=== PATIENT | male | born 1940 | race Caucasian/White ===

== ENCOUNTER → 2023-07-04 11:21 | Outpatient (REF) | payer MEDICARE, SELFPAY ==
[2023-07-04 12:24] LABS: % Basophils 1.1 % (0-2); % Eosinophils 3.1 % (0-6); % Immature Granulocytes 1.6 % (0-0.5); % Lymphocytes 19.2 % (20.5-51.1); % Monocytes 10.7 % (1.7-9.3); % Neutrophils 64.3 % (42.2-75.2); Absolute Basophils 0.1 10^3/uL (0-0.2); Absolute Eosinophils 0.2 10^3/uL (0-0.7); Absolute Immature Granulocytes 0.1 10^3/uL (0-0.05); Absolute Lymphocytes 1.2 10^3/uL (1.2-3.4); Absolute Monocytes 0.7 10^3/uL (0.1-0.6); Hematocrit 44.3 % (39.0-52.0); Hemoglobin 15.4 g/dL (13.0-18.0); Mean Corp Hgb Conc. 34.8 g/dL (33.0-37.0); Mean Corpuscular Hgb 31.6 pg (27.0-31.0); Mean Platelet Volume 11.2 fL (7.4-10.4); Nucleated Red Blood Cells % 0 % (-); Platelet Count 207 10^3/uL (130-400); Red Blood Cell Count 4.87 10^6/uL (4.70-6.10); Red Cell Dist. Width 13.7 % (11.5-14.5); White Blood Cell Count 6.2 10^3/uL (4.8-10.8)
[2023-07-04 12:57] LABS: ALT (SGPT) 31 U/L (0-50); AST (SGOT) 40 U/L (17-59); Albumin 4.3 g/dl (3.5-5.0); Alkaline Phosphatase 80 U/L (38-126); Blood Urea Nitrogen 25 mg/dl (9-20); Calcium 10.3 mg/dl (8.4-10.2); Carbon Dioxide 28 mmol/L (22-30); Chloride 101 mmol/L (98-107); Glucose 101 mg/dl (70-99); HDL Cholesterol 86 mg/dl; LDL Cholesterol, Calculated 52 mg/dl; Potassium 5.2 mmol/L (3.5-5.1); Sodium 139 mmol/L (135-145); Total Bilirubin 0.8 mg/dl (0.2-1.3); Total Cholesterol 152 mg/dl (50-199); Total Protein 6.9 g/dl (6.3-8.2); Triglyceride 71 mg/dl (10-149); Very Low Density Lipoprotein 14 mg/dl (0-30); eGFR > 60.00
[2023-07-04 13:25] LABS: TSH 0.78 uIU/ml (0.47-4.68)
[2023-07-06 05:41] LABS: CCP Antibody IgG/IgA 24 Units (0-19)
== END ==
LOC: REG 11:21
PROVIDERS: ATTENDING PHYSICIAN Family Medicine
DX: E78.5 Hyperlipidemia, unspecified (principal); E03.9 Hypothyroidism, unspecified; R76.8 Other specified abnormal immunological findings in serum
CPT/HCPCS: 36415; 80053; 80061; 84443; 85025; 86140; 86200

== ENCOUNTER → 2023-09-16 10:47 | Outpatient (REF) | payer MEDICARE, SELFPAY ==
[2023-09-16 12:45] LABS: ALT (SGPT) 29 U/L (0-50); AST (SGOT) 36 U/L (17-59); Albumin 4.5 g/dl (3.5-5.0); Alkaline Phosphatase 78 U/L (38-126); Blood Urea Nitrogen 20 mg/dl (9-20); Calcium 10.2 mg/dl (8.4-10.2); Carbon Dioxide 28 mmol/L (22-30); Chloride 102 mmol/L (98-107); Glucose 100 mg/dl (70-99); Potassium 4.6 mmol/L (3.5-5.1); Sodium 139 mmol/L (135-145); Total Bilirubin 0.7 mg/dl (0.2-1.3); Total Protein 6.9 g/dl (6.3-8.2); eGFR > 60.00
[2023-09-16 12:51] LABS: Glycohemoglobin (HgbA1c) 5.5 % (4.0-5.6)
== END ==
LOC: REG 10:47
PROVIDERS: ATTENDING PHYSICIAN Internal Medicine Interventional Cardiology; FAMILY PHYSICIAN Family Medicine
DX: I10 Essential (primary) hypertension (principal); E78.2 Mixed hyperlipidemia; E78.5 Hyperlipidemia, unspecified
CPT/HCPCS: 36415; 80053; 83036

== ENCOUNTER → 2023-09-19 08:09 | Outpatient (REF) | payer MEDICARE, SELFPAY | LOC: DHCBC/DCA 08:09 | PROVIDERS: ATTENDING PHYSICIAN Internal Medicine Interventional Cardiology; FAMILY PHYSICIAN Family Medicine | DX: I10 Essential (primary) hypertension (principal); E78.2 Mixed hyperlipidemia; R06.09 Other forms of dyspnea | CPT/HCPCS: 78452; 93017; A9500; J2785 ==

== ENCOUNTER → 2023-09-25 16:09 | Outpatient (REF) | payer MEDICARE, SELFPAY | LOC: RCS 16:09 | PROVIDERS: ATTENDING PHYSICIAN Internal Medicine Interventional Cardiology; FAMILY PHYSICIAN Family Medicine | DX: I10 Essential (primary) hypertension (principal); E78.2 Mixed hyperlipidemia | CPT/HCPCS: 93306 ==

== ENCOUNTER → 2023-12-06 11:21 | Outpatient (REF) | payer MEDICARE, SELFPAY ==
[2023-12-06 13:16] LABS: % Basophils 0.7 % (0-2); % Eosinophils 3.8 % (0-6); % Immature Granulocytes 0.8 % (0-0.5); % Neutrophils 66.7 % (42.2-75.2); Absolute Basophils 0.1 10^3/uL (0-0.2); Absolute Eosinophils 0.3 10^3/uL (0-0.7); Absolute Immature Granulocytes 0.1 10^3/uL (0-0.05); Absolute Lymphocytes 1.2 10^3/uL (1.2-3.4); Absolute Monocytes 0.8 10^3/uL (0.1-0.6); Absolute Neutrophils 4.7 10^3/uL (1.4-6.5); Hematocrit 41.7 % (39.0-52.0); Hemoglobin 14.3 g/dL (13.0-18.0); Mean Corp Hgb Conc. 34.3 g/dL (33.0-37.0); Mean Corpuscular Hgb 31.8 pg (27.0-31.0); Mean Corpuscular Volume 92.7 fL (80.0-94.0); Mean Platelet Volume 11.7 fL (7.4-10.4); Nucleated Red Blood Cells % 0 % (-); Platelet Count 220 10^3/uL (130-400); Red Cell Dist. Width 12.2 % (11.5-14.5); White Blood Cell Count 7.1 10^3/uL (4.8-10.8)
[2023-12-06 13:49] LABS: ALT (SGPT) 25 U/L (0-50); AST (SGOT) 33 U/L (17-59); Albumin 4.7 g/dl (3.5-5.0); Alkaline Phosphatase 75 U/L (38-126); Blood Urea Nitrogen 27 mg/dl (9-20); Calcium 9.8 mg/dl (8.4-10.2); Carbon Dioxide 26 mmol/L (22-30); Chloride 104 mmol/L (98-107); Glucose 92 mg/dl (70-99); HDL Cholesterol 59 mg/dl; LDL Cholesterol, Calculated 79 mg/dl; Potassium 4.7 mmol/L (3.5-5.1); Sodium 137 mmol/L (135-145); Total Bilirubin 0.7 mg/dl (0.2-1.3); Total Cholesterol 152 mg/dl (50-199); Total Protein 6.8 g/dl (6.3-8.2); Triglyceride 70 mg/dl (10-149); Very Low Density Lipoprotein 14 mg/dl (0-30); eGFR > 60.00
[2023-12-06 14:19] LABS: TSH 0.78 uIU/ml (0.47-4.68)
[2023-12-09 01:51] LABS: CCP Antibody IgG/IgA 34 Units (0-19)
== END ==
LOC: REG 11:21
PROVIDERS: ATTENDING PHYSICIAN Family Medicine
DX: I10 Essential (primary) hypertension (principal); I35.0 Nonrheumatic aortic (valve) stenosis; E78.5 Hyperlipidemia, unspecified; E03.9 Hypothyroidism, unspecified; K21.9 Gastro-esophageal reflux disease without esophagitis; J44.9 Chronic obstructive pulmonary disease, unspecified; R76.8 Other specified abnormal immunological findings in serum; F41.1 Generalized anxiety disorder; F33.0 Major depressive disorder, recurrent, mild; I77.1 Stricture of artery; I70.0 Atherosclerosis of aorta; F10.20 Alcohol dependence, uncomplicated
CPT/HCPCS: 36415; 80053; 80061; 84443; 85025; 86200; 86430

== ENCOUNTER → 2023-12-23 12:02 | Outpatient (REF) | payer MEDICARE, SELFPAY | LOC: MRI 3T 12:02 | PROVIDERS: ATTENDING PHYSICIAN Orthopaedic Surgery Hand Surgery; FAMILY PHYSICIAN Family Medicine | DX: M75.121 Complete rotator cuff tear or rupture of right shoulder, not specified as traumatic (principal) | CPT/HCPCS: 73221 ==

== ENCOUNTER → 2023-12-30 08:58 | Outpatient (REF) | payer MEDICARE, SELFPAY | LOC: RAD 08:58 | PROVIDERS: ATTENDING PHYSICIAN Internal Medicine Interventional Cardiology; FAMILY PHYSICIAN Family Medicine | DX: R06.09 Other forms of dyspnea (principal) | CPT/HCPCS: 75574; Q9967 ==

== ENCOUNTER → 2024-01-31 10:04 | Outpatient (REF) | payer MEDICARE, SELFPAY ==
[2024-01-31 12:08] LABS: Blood Urea Nitrogen 31 mg/dl (9-20); Calcium 10.1 mg/dl (8.4-10.2); Carbon Dioxide 28 mmol/L (22-30); Chloride 100 mmol/L (98-107); Glucose 107 mg/dl (70-99); Magnesium 2.2 mg/dl (1.6-2.3); Potassium 5.3 mmol/L (3.5-5.1); Sodium 139 mmol/L (135-145); eGFR > 60.00
== END ==
LOC: REG 10:04
PROVIDERS: ATTENDING PHYSICIAN Internal Medicine Interventional Cardiology; FAMILY PHYSICIAN Family Medicine
DX: R06.09 Other forms of dyspnea (principal); R07.89 Other chest pain; I34.0 Nonrheumatic mitral (valve) insufficiency; I10 Essential (primary) hypertension
CPT/HCPCS: 36415; 80048; 83735

== ENCOUNTER → 2024-02-04 06:58 | Outpatient (REF) | payer MEDICARE, SELFPAY | LOC: EMG 06:58 | PROVIDERS: ATTENDING PHYSICIAN Family Medicine | DX: R25.2 Cramp and spasm (principal) | CPT/HCPCS: 95886; 95911 ==

== ENCOUNTER → 2024-03-04 08:11 | Outpatient (REF) | payer MEDICARE, SELFPAY ==
[2024-03-08 00:14] LABS: Alpha-1-Antitrypsin 145 mg/dL (90-200); Alpha-1-Antitrypsin Phenotype M1M1
== END ==
LOC: REG 08:11
PROVIDERS: ATTENDING PHYSICIAN Internal Medicine Critical Care Medicine; FAMILY PHYSICIAN Family Medicine
DX: R06.09 Other forms of dyspnea (principal); Z82.5 Family history of asthma and other chronic lower respiratory diseases
CPT/HCPCS: 36415; 82103; 82104

== ENCOUNTER → 2024-03-20 14:07 | Outpatient (REF) | payer MEDICARE, SELFPAY | LOC: RAD 14:07 | PROVIDERS: ATTENDING PHYSICIAN Family Medicine | DX: R25.2 Cramp and spasm (principal); M62.89 Other specified disorders of muscle; I73.9 Peripheral vascular disease, unspecified | CPT/HCPCS: 93922; 93925 ==

== ENCOUNTER → 2024-05-11 10:59 | Outpatient (REF) | payer MEDICARE, SELFPAY ==
[2024-05-11 11:41] LABS: % Basophils 0.7 % (0-2); % Lymphocytes 17.3 % (20.5-51.1); % Monocytes 14.8 % (1.7-9.3); % Neutrophils 62.2 % (42.2-75.2); Absolute Eosinophils 0.2 10^3/uL (0-0.7); Absolute Immature Granulocytes 0.1 10^3/uL (0-0.05); Absolute Monocytes 0.9 10^3/uL (0.1-0.6); Absolute Neutrophils 3.7 10^3/uL (1.4-6.5); Hematocrit 41.6 % (39.0-52.0); Hemoglobin 14.2 g/dL (13.0-18.0); Mean Corp Hgb Conc. 34.1 g/dL (33.0-37.0); Mean Corpuscular Hgb 33.1 pg (27.0-31.0); Mean Platelet Volume 10.7 fL (7.4-10.4); Nucleated Red Blood Cells % 0 % (-); Platelet Count 183 10^3/uL (130-400); Red Blood Cell Count 4.29 10^6/uL (4.70-6.10); Red Cell Dist. Width 12.6 % (11.5-14.5)
[2024-05-11 12:07] LABS: ALT (SGPT) 29 U/L (0-50); AST (SGOT) 36 U/L (17-59); Albumin 4.4 g/dl (3.5-5.0); Alkaline Phosphatase 73 U/L (38-126); Blood Urea Nitrogen 26 mg/dl (9-20); Calcium 9.7 mg/dl (8.4-10.2); Carbon Dioxide 29 mmol/L (22-30); Chloride 99 mmol/L (98-107); Glucose 102 mg/dl (70-99); Potassium 5.3 mmol/L (3.5-5.1); Sodium 136 mmol/L (135-145); Total Bilirubin 0.4 mg/dl (0.2-1.3); Total Cholesterol 192 mg/dl (50-199); Total Protein 6.7 g/dl (6.3-8.2); Triglyceride 132 mg/dl (10-149); Very Low Density Lipoprotein 26 mg/dl (0-30); eGFR > 60.00
[2024-05-11 12:16] LABS: HDL Cholesterol 63 mg/dl; LDL Cholesterol, Calculated 103 mg/dl
[2024-05-11 12:29] LABS: Glycohemoglobin (HgbA1c) 5.4 % (4.0-5.6)
== END ==
LOC: REG 10:59
PROVIDERS: ATTENDING PHYSICIAN Family Medicine
DX: E03.9 Hypothyroidism, unspecified (principal); R73.03 Prediabetes; E78.5 Hyperlipidemia, unspecified; R79.89 Other specified abnormal findings of blood chemistry
CPT/HCPCS: 36415; 80053; 80061; 83036; 85025

== ENCOUNTER 2024-08-31 15:59 | Emergency (ER) | payer MEDICARE, SELFPAY ==
[2024-08-31 16:01] VITALS: BP 103/58
[2024-08-31 16:17] LABS: % Basophils 0.3 % (0-2); % Eosinophils 2.8 % (0-6); % Immature Granulocytes 1.9 % (0-0.5); % Lymphocytes 12.6 % (20.5-51.1); % Neutrophils 70.4 % (42.2-75.2); Absolute Eosinophils 0.4 10^3/uL (0-0.7); Absolute Immature Granulocytes 0.3 10^3/uL (0-0.05); Absolute Lymphocytes 1.6 10^3/uL (1.2-3.4); Absolute Monocytes 1.6 10^3/uL (0.1-0.6); Absolute Neutrophils 9.1 10^3/uL (1.4-6.5); Hematocrit 44.5 % (39.0-52.0); Hemoglobin 15.2 g/dL (13.0-18.0); Mean Corp Hgb Conc. 34.2 g/dL (33.0-37.0); Mean Corpuscular Hgb 32.3 pg (27.0-31.0); Mean Corpuscular Volume 94.5 fL (80.0-94.0); Mean Platelet Volume 10.5 fL (7.4-10.4); Nucleated Red Blood Cells % 0 % (-); Platelet Count 208 10^3/uL (130-400); Red Blood Cell Count 4.71 10^6/uL (4.70-6.10); Red Cell Dist. Width 12.8 % (11.5-14.5)
[2024-08-31 17:00] LABS: ALT (SGPT) 24 U/L (0-50); AST (SGOT) 25 U/L (17-59); Albumin 4.7 g/dl (3.5-5.0); Alkaline Phosphatase 124 U/L (38-126); Blood Urea Nitrogen 40 mg/dl (9-20); Carbon Dioxide 23 mmol/L (22-30); Chloride 102 mmol/L (98-107); Glucose 114 mg/dl (70-99); Potassium 4.9 mmol/L (3.5-5.1); Sodium 137 mmol/L (135-145); Total Bilirubin 0.8 mg/dl (0.2-1.3); Total Protein 6.7 g/dl (6.3-8.2); eGFR 49.87
--- NOTE | 2024-08-31 20:20 | ED.GENMED ---
History of Present Illness
General
Chief Complaint: Abdominal Symptoms
Time Seen by Provider: 08/31/24 20:07
History of Present Illness
History of Present Illness:
84-year-old male with history of COPD and hypertension presents to the emergency department for evaluation of persistent watery diarrhea for the past 4 to 5 days. Began after eating 'a bad stew'. Nonbloody, nonmelanotic diarrhea. Having lower
extremity cramping as well. Denies any abdominal pain, nausea, or vomiting. Denies any recent antibiotics within the past 90 days
Past History
Past History
ED Past Medical History: COPD, GERD, HTN, Hypercholesterolemia, Hypothyroidism, Other (Spinal stenosis, spondylolisthesis) and Other (Benign prostatic hypertrophy)
ED Past Surgical History: Orthopedic (Lumbar laminectomy, spinal fusion October 2022) and Other (History of elbow surgery, rotator cuff surgery, carpal tunnel surgery)
Social History
Tobacco: Former smoker
Alcohol: Occasional
Drug: None
Personal:
Living: with family
Employment: Retired ([employer])
Family History
Family History: Other (n/c)
Review of Systems
Review of Systems
Allergies reviewed?: Yes
All Other Systems: ROS reviewed and negative except as documented in HPI and ROS
Phy Exam
Physical Exam
Physical Exam:
GEN: Well appearing, NAD, WDWN
HEENT: Oral mucosa moist, no scleral icterus
Cardiac: Regular rate and rhythm, no murmur
Lung: No respiratory distress, no tachypnea
Abdomen: Soft, grossly nontender
MSK: No gross deformity or injuries
Skin: Good color, no pallor or jaundice, no rashes
Neuro: AO x3, moves all extremities freely
Psych: Calm, cooperative
Course
Orders/Labs/Results
Orders:
Orders
08/31/24 16:07
Complete Blood Count/With Diff Urgent
Comprehensive Metabolic Panel Urgent
Magnesium Urgent
08/31/24 20:22
Add On- LAB Urgent
Tests Added?: magnesium
0.9% Sodium Chloride 1000 ml [Nss] 1,000 ml IV BOLUS
08/31/24 22:47
Stool Culture Urgent
JENNIFER Source: Feces/Stool
Specimen Description:
Date Specimen was Collected: 08/31/24
Time Specimen was Collected: 22:43
Abnormal Lab Results
08/31/24
16:07
WBC 13.0 H 10^3/uL
(4.8-10.8)
MCV 94.5 H fL
(80.0-94.0)
MCH 32.3 H pg
(27.0-31.0)
MPV 10.5 H fL
(7.4-10.4)
Abs Immat Gran (auto) 0.3 H 10^3/uL
(0-0.05)
Absolute Neuts (auto) 9.1 H 10^3/uL
(1.4-6.5)
Absolute Monos (auto) 1.6 H 10^3/uL
(0.1-0.6)
Immature Gran % 1.9 H %
(0-0.5)
Lymphocytes % 12.6 L %
(20.5-51.1)
Monocytes % 12.0 H %
(1.7-9.3)
BUN 40 H mg/dl
(9-20)
Creatinine 1.4 H mg/dL
(0.7-1.3)
Glucose 114 H mg/dl
(70-99)
08/31/24 16:07
08/31/24 16:07
Vital Signs
Initial and Last Documented VS:
Initial Vital Signs
Temp Pulse Resp BP Pulse Ox
98.8 F 76 16 103/58 97
08/31/24 16:01 08/31/24 16:01 08/31/24 16:01 08/31/24 16:01 08/31/24 16:01
Last Documented Vital Signs
Temp Pulse Resp BP Pulse Ox
97.6 F 61 16 99/58 93
08/31/24 20:49 08/31/24 20:49 08/31/24 16:01 08/31/24 22:27 08/31/24 22:30
MDM/Problems Addressed
MDM/Problems Addressed:
Likely self-limited foodborne illness however given the persistence of symptoms for 5 days, stool culture was sent to evaluate for possible foodborne bacteria that would require antibiotic administration.
*Critical Care Note
Total Time (30-74mins, 75-104mins- exclusive of procedures): Not Applicable
ED Attending Note
-
Portions of this chart may have been created with voice recognition software.� Occasional wrong word or��sound alike� substitutions may have occurred due to the inherent limitations of voice recognition software.
Discharge Plan
Departure
Patient Disposition: Home (Routine Discharge)
Date of Disposition: 08/31/24
Time of Disposition: 22:24
Patient with high blood pressure during this ER visit?: No
Discharge Problem:
Diarrhea
Instructions: Diarrhea in teens and adults
Prescriptions:
No Action
atorvastatin 40 MG tablet
40 mg PO DAILY
levothyroxine 75 MCG tablet
75 mcg PO DAILY
escitalopram oxalate 20 MG tablet
20 mg PO DAILY
multivitamin Tablet
1 tab PO DAILY
Vitamin C 1,000 mg Tablet Extended Release
1,000 mg PO DAILY
omeprazole 40 mg Capsule,Delayed Release(Dr/Ec)
40 mg PO BID
guar gum Packet
1 tbsp PO DAILY
fluticasone propionate 100 mcg/actuation Blister With Device
1 inh INHALATION Q12H
magnesium 250 mg Tablet
250 mg PO BID
dutasteride 0.5 mg Capsule
0.5 mg PO DAILY
Leg Cramp Relief
1 cap PO HS
docusate sodium 100 mg Capsule
100 mg PO BID Qty: 30 0RF
sennosides [Senna Laxative] 8.6 mg Tablet
17.2 mg PO BID Qty: 30 0RF
acetaminophen [Tylenol] 325 mg tablet
650 mg PO Q4H PRN (Reason: mild pain) Qty: 60 0RF
Rx Instructions:
DO NOT exceed >4000 mg daily.
1 Percocet tab = 325 mg of Tylenol.
oxycodone-acetaminophen [Percocet] 5-325 mg tablet
1 - 2 tab PO Q6H PRN (Reason: moderate-severe pain) Qty: 30 0RF
Rx Instructions:
1 tab for moderate pain, 2 if severe.
Dx lami. Ongoing therapy.
telmisartan 80 MG tablet
80 mg PO DAILY Qty: 0 0RF
Rx Instructions:
HOLD if systolic blood pressure <130 while on Percocet.
hydrochlorothiazide 12.5 mg Tablet
12.5 mg PO DAILY Qty: 0 0RF
Rx Instructions:
HOLD if systolic blood pressure <130 while on Percocet.
Referrals:
Johnny Rivera DO [Family Provider] -
Activity Restrictions/Additional Instructions:
Increase fluids at home
Obtain stool studies as soon as possible and return to hospital or outpatient lab [facility]
Return to the ER if you develop worsening symptoms, fever, or bloody stool
Interventions
Interventions:
*Risk Screen - Suicide Last Done: 08/31/24 16:03
*General Assessment Last Done: 08/31/24 20:43
*Neglect/Abuse Screening Last Done: 08/31/24 16:03
*ED- Fall Risk Assessment Last Done: 08/31/24 20:43
*ED COVID-19 Vaccine History Last Done: 08/31/24 20:43
*Nursing Disposition Last Done: 08/31/24 22:32
EL-Lomiqj-Sroqusvcob Assessment Last Done: 08/31/24 20:54
Discharge Date and Time
Discharge Date/Time: 08/31/24 22:56
Print Language: MALDIVIAN
[2024-08-31 20:49] VITALS: BP 94/76
[2024-08-31 20:51] LABS: Magnesium 1.9 mg/dl (1.6-2.3)
[2024-08-31] MEDS: NSS 1000 IV (20:55)
[2024-08-31 21:00] VITALS: BP 112/57
[2024-08-31 22:27] VITALS: BP 99/58
== END 2024-08-31 22:56 | disposition home or self-care (01) ==
LOC: EMR 15:59
PROVIDERS: Emergency Medicine; EMERGENCY PHYSICIAN Emergency Medicine; FAMILY PHYSICIAN Family Medicine
DX: R19.7 Diarrhea, unspecified (principal); J44.9 Chronic obstructive pulmonary disease, unspecified; I10 Essential (primary) hypertension; E78.00 Pure hypercholesterolemia, unspecified; E03.9 Hypothyroidism, unspecified; M48.00 Spinal stenosis, site unspecified; M43.10 Spondylolisthesis, site unspecified; N40.0 Benign prostatic hyperplasia without lower urinary tract symptoms; Z87.891 Personal history of nicotine dependence; Z98.1 Arthrodesis status
CPT/HCPCS: 99283; 96360; 80053; 83735; 85025; 87045; 87046; 87427

== ENCOUNTER → 2024-11-30 17:24 | Outpatient (REF) | payer MEDICARE, SELFPAY | LOC: CLAB 17:24 | PROVIDERS: ATTENDING PHYSICIAN Physician Assistant | DX: H72.91 Unspecified perforation of tympanic membrane, right ear (principal) | CPT/HCPCS: 87070; 87147; 87186 ==

== ENCOUNTER → 2024-12-02 09:43 | Outpatient (REF) | payer MEDICARE, SELFPAY ==
[2024-12-02 10:37] LABS: Hematocrit 42.7 % (39.0-52.0); Hemoglobin 14.4 g/dL (13.0-18.0); Mean Corp Hgb Conc. 33.7 g/dL (33.0-37.0); Mean Corpuscular Volume 95.3 fL (80.0-94.0); Nucleated Red Blood Cells % 0 % (-); Platelet Count 176 10^3/uL (130-400); Red Cell Dist. Width 13.2 % (11.5-14.5)
[2024-12-02 11:05] LABS: Glycohemoglobin (HgbA1c) 5.4 % (4.0-5.6)
[2024-12-02 11:46] LABS: ALT (SGPT) 22 U/L (0-50); AST (SGOT) 27 U/L (17-59); Albumin 4.5 g/dl (3.5-5.0); Alkaline Phosphatase 71 U/L (38-126); Blood Urea Nitrogen 25 mg/dl (9-20); Calcium 9.7 mg/dl (8.4-10.2); Carbon Dioxide 29 mmol/L (22-30); Chloride 106 mmol/L (98-107); Glucose 100 mg/dl (70-99); HDL Cholesterol 70 mg/dl; LDL Cholesterol, Calculated 55 mg/dl; Potassium 4.6 mmol/L (3.5-5.1); Sodium 141 mmol/L (135-145); Total Protein 6.8 g/dl (6.3-8.2); Very Low Density Lipoprotein 10 mg/dl (0-30); eGFR > 60.00
[2024-12-02 12:24] LABS: TSH 1.92 uIU/ml (0.47-4.68)
== END ==
LOC: REG 09:43
PROVIDERS: ATTENDING PHYSICIAN Internal Medicine Interventional Cardiology; FAMILY PHYSICIAN Family Medicine
DX: R06.09 Other forms of dyspnea (principal); R73.09 Other abnormal glucose; E03.9 Hypothyroidism, unspecified
CPT/HCPCS: 36415; 80053; 80061; 83036; 84443; 85025

== ENCOUNTER → 2024-12-08 09:00 | Outpatient (REF) | payer MEDICARE, SELFPAY | LOC: CLAB 09:00 | PROVIDERS: ATTENDING PHYSICIAN Otolaryngology | DX: H66.3X1 Other chronic suppurative otitis media, right ear (principal) | CPT/HCPCS: 87070 ==

== ENCOUNTER → 2024-12-09 17:26 | Outpatient (REF) | payer MEDICARE, SELFPAY | LOC: UCDH 17:26 | PROVIDERS: ATTENDING PHYSICIAN Physician Assistant; FAMILY PHYSICIAN Family Medicine | DX: R07.81 Pleurodynia (principal) | CPT/HCPCS: 71101 ==

== ENCOUNTER → 2024-12-29 13:10 | Outpatient (REF) | payer MEDICARE, SELFPAY | LOC: HWRAD 13:10 | PROVIDERS: ATTENDING PHYSICIAN Otolaryngology; FAMILY PHYSICIAN Family Medicine | DX: H66.3X1 Other chronic suppurative otitis media, right ear (principal) | CPT/HCPCS: 70480 ==